=== PATIENT | male | born 1940 | race Caucasian/White ===

== ENCOUNTER 2023-04-07 07:28 | Outpatient (REF) | payer OTHER, SELFPAY ==
[2023-04-07] VITALS (9 sets, daily range): BP systolic 63–175; BP diastolic 67–97
[2023-04-07 08:16] LABS: % Eosinophils 0.7 % (0-6); % Immature Granulocytes 0.3 % (0-0.5); % Monocytes 8.7 % (1.7-9.3); % Neutrophils 69.3 % (42.2-75.2); Absolute Lymphocytes 0.6 10^3/uL (1.2-3.4); Absolute Monocytes 0.3 10^3/uL (0.1-0.6); Absolute Neutrophils 2.1 10^3/uL (1.4-6.5); Hematocrit 29.9 % (39.0-52.0); Hemoglobin 10.2 g/dL (13.0-18.0); Mean Corp Hgb Conc. 34.1 g/dL (33.0-37.0); Mean Corpuscular Hgb 33.1 pg (27.0-31.0); Mean Corpuscular Volume 97.1 fL (80.0-94.0); Mean Platelet Volume 9.4 fL (7.4-10.4); Nucleated Red Blood Cells % 0 % (-); Platelet Count 160 10^3/uL (130-400); Red Blood Cell Count 3.08 10^6/uL (4.70-6.10); Red Cell Dist. Width 13.4 % (11.5-14.5)
[2023-04-07 08:24] LABS: INR 1.09; PT 14.2 Sec (11.4-14.6)
[2023-04-07 08:31] LABS: Blood Urea Nitrogen 52 mg/dl (9-20); Carbon Dioxide 25 mmol/L (22-30); Chloride 100 mmol/L (98-107); Glucose 104 mg/dl (70-99); Sodium 135 mmol/L (135-145); eGFR 15.33
[2023-04-07] MEDS: APRESOLINE 5 MG IV (09:00)
[2023-04-07 14:25] LABS: Hematocrit 28.3 % (39.0-52.0); Hemoglobin 9.7 g/dL (13.0-18.0)
[2023-04-07 23:41] LABS: Complement C3 97 mg/dl (88-165)
[2023-04-08 19:45] LABS: Hepatitis B Surface Antigen Negative (Negative)
[2023-04-08 20:04] LABS: Hepatitis B Core Ab, Total Reactive (Negative); Hepatitis B Surface Antibody Positive; Hepatitis C Antibody Negative (Negative)
[2023-04-09 01:54] LABS: ANA, IgG Reflex to HEp-2 None Detected (None Detected)
[2023-04-10 03:27] LABS: Phospholipase A2 Receptor, IgG <1:10 (<1:10)
[2023-04-15 08:09] LABS: Myeloperoxidase Antibody 0 AU/mL (0-19); Serine Protease-3, IgG 0 AU/mL (0-19)
== END 2023-04-07 16:05 | disposition home or self-care (01) ==
LOC: RADI 07:28
PROVIDERS: Physician Assistant; ATTENDING PHYSICIAN Specialist
DX: N26.9 Renal sclerosis, unspecified (principal); E85.89 Other amyloidosis; N26.1 Atrophy of kidney (terminal); N19 Unspecified kidney failure; D68.8 Other specified coagulation defects
CPT/HCPCS: 36415; 50200; 76942; 80048; 83516; 85014; 85018; 85025; 85610; 86038; 86160; 86255; 86704; 86706; 86803; 87340; 99152; 99153

== ENCOUNTER → 2023-05-21 13:52 | Outpatient (REF) | payer OTHER, SELFPAY | LOC: RAD 13:52 | PROVIDERS: ATTENDING PHYSICIAN Specialist; FAMILY PHYSICIAN Family Medicine; REFERRING PHYSICIAN Surgery Vascular Surgery | DX: N18.4 Chronic kidney disease, stage 4 (severe) (principal); R80.9 Proteinuria, unspecified; D64.9 Anemia, unspecified | CPT/HCPCS: 93985 ==

== ENCOUNTER 2023-06-08 08:18 | Day surgery (SDC) | payer OTHER, SELFPAY ==
[2023-06-08] VITALS (11 sets, daily range): BP systolic 129–162; BP diastolic 63–80; BMI 25.3
[2023-06-08 08:41] LABS: Hematocrit 28.5 % (39.0-52.0); Hemoglobin 9.6 g/dL (13.0-18.0); Mean Corp Hgb Conc. 33.7 g/dL (33.0-37.0); Mean Corpuscular Hgb 33.2 pg (27.0-31.0); Mean Corpuscular Volume 98.6 fL (80.0-94.0); Mean Platelet Volume 9.7 fL (7.4-10.4); Platelet Count 117 10^3/uL (130-400); Red Blood Cell Count 2.89 10^6/uL (4.70-6.10); Red Cell Dist. Width 17.8 % (11.5-14.5); White Blood Cell Count 2.6 10^3/uL (4.8-10.8)
[2023-06-08 08:54] LABS: INR 1.14; PT 14.4 Sec (11.4-14.6)
[2023-06-08 08:55] LABS: APTT 26.2 Sec (23.4-35.0)
[2023-06-08 09:04] LABS: Blood Urea Nitrogen 54 mg/dl (9-20); Calcium 8.8 mg/dl (8.4-10.2); Carbon Dioxide 23 mmol/L (22-30); Chloride 101 mmol/L (98-107); Estimated Creatinine Clearance 14 ml/min; Glucose 94 mg/dl (70-99); Potassium 4.5 mmol/L (3.5-5.1); Sodium 131 mmol/L (135-145)
--- NOTE | 2023-06-08 09:28 | W.SUR.PREOP ---
Pre-Operative Surgical Note
-
I have examined this patient prior to the performance of the scheduled procedure.
The patient's condition is unchanged from the time of the current History and
Physical and the patient is able to undergo the scheduled procedure.
[2023-06-08] MEDS: BACTROBAN NASAL 1 GRAM NASAL (09:31)
[2023-06-08] MEDS: NSS 500 IV (09:32)
--- NOTE | 2023-06-08 10:54 | OR.RPT ---
Operative Report
Operative Report
Date of Operation: 06/08/2023
Pre Op Diagnosis: Chronic kidney disease with anticipated need for hemodialysis
Post Op Diagnosis: Chronic kidney disease with anticipated need for hemodialysis
Procedure: Creation of left upper extremity brachiobasilic arteriovenous fistula (first stage of a planned two-stage basilic vein transposition
Surgeon: Rodolfo Rojas III, MD
Programmer Operator Numerical Control: Jonathan Juan MD PhD, PGY1
Anesthesia: General
Complications: None
Estimated Blood Loss: 10 cc
History and Indications for Procedure: 82-year-old male with chronic kidney disease and anticipated need for hemodialysis initiation.
Procedure in Detail: Per Springer was correctly identified and placed supine on the operating table. After adequate induction of anesthesia the left arm was positioned, prepped and draped in the usual sterile fashion. Preoperative antibiotics were
administered. A timeout procedure was performed with the nursing and anesthesia staff confirming the patients identity as well as the nature and laterality of the procedure.
I performed intraoperative ultrasound on the veins of the left arm. I identified the upper arm basilic vein from the elbow to the axilla. The brachial artery was also identified in the distal upper arm and proximal forearm. The appropriate site for
the incision was then identified in the distal upper arm, just proximal to the elbow.
An incision was then made in the distal upper arm. Careful sharp dissection was performed and the basilic vein exposed. Branches of the vein were ligated between silk ties. The brachial artery was exposed with sharp dissection. Proximal and distal
control was obtained with vessel loops.
The distal end of the basilic vein was ligated with a silk tie. The vein was transected and flushed proximally with heparinized saline. The vein flushed easily and without resistance. The vessel loops on the artery were secured. An arteriotomy was
made with an 11-blade. This was extended just slightly proximally and distally with Anne scissors. The proximal and distal artery was flushed with heparinized saline. The end of the vein was spatulated slightly. An end-to-side anastomosis was
performed from the end of the basilic vein to the brachial artery with a running 7-0 Prolene. At the completion of the anastomosis the proximal vessel loop was released first. After several heartbeats the distal brachial artery loop was released.
The suture line was closely inspected and hemostasis achieved. There was an excellent thrill in the vein. There was a good pulse in the brachial artery proximal and distal to the anastomosis. There was a palpable radial pulse of the left wrist.
The wound was irrigated with saline. Hemostasis was achieved in the wound bed. The wound was closed in multiple layers and sterile dressings applied.
The patient tolerated the procedure well and was taken to the PACU in stable condition.
Attestation: I was present and responsible for the entire procedure
Signed:
Rodolfo Rojas III, MD
[facility]
[phone] (cell)
--- NOTE | 2023-06-08 11:07 | W.IMMPOSTOP ---
Surgical Immed Post Op Note
-
Primary Surgeon: Dr. Rodolfo Rojas MD
Assisting Surgeon: Dr. Jonathan Juan MD, PhD
Pre-op Diagnosis: CKD requiring dialysis
Post-op Diagnosis: CKD requiring dialysis
Procedure Performed: LUE AV fistula creation for dialysis access
Anesthesia Type: General
Specimen / Cultures: None
Estimated Blood Loss: None/minimal
Complications: None
Operative Findings: Prior to surgery, the left upper extremity basilic and cephalic veins were evaluated with ultrasound. The basilic vein was determined to be a good target for the AV fistula creation. Incision was made and dissection carried out
to identify the basilic vein. A vessel loop was passed around the vein. A side branch of the vein was suture ligated and divided. Dissection was carried out to identify the left brachial artery. Proximal and distal control of the left brachial
artery was completed with vessel loops. Arteriotomy was performed. The basilic vein was suture ligated and divided. Heparinized saline was injected into the proximal and distal brachial artery. An end to side anastomosis between the basilic vein and
the brachial artery was performed with 7-0 prolene suture. At the completion of the anastomosis, a palpation thrill was confirmed at the basilic vein proximally and a palpable radial pulse was confirmed distally. Hemostasis was achieved with
fibrillar. The subcutaneous and skin layers were closed with two layers of suture and skin glue.
== END 2023-06-08 13:28 | disposition home or self-care (01) ==
LOC: CATH 08:18
PROVIDERS: ATTENDING PHYSICIAN Surgery Vascular Surgery; FAMILY PHYSICIAN Family Medicine
DX: I12.0 Hypertensive chronic kidney disease with stage 5 chronic kidney disease or end stage renal disease (principal); N18.5 Chronic kidney disease, stage 5; Z85.79 Personal history of other malignant neoplasms of lymphoid, hematopoietic and related tissues
CPT/HCPCS: 36821; 80048; 85027; 85610; 85730; 93005